=== PATIENT | male | born 1955 | race Caucasian/White ===

== ENCOUNTER 2019-04-22 10:58 | Observation (INO) ==
[2019-04-22] MEDS ORDERED: HEPARIN (PORCINE) 1000 UNIT/ML 10 ML (CATH LAB USE ONLY) ONE (12:21)
[2019-04-22] MEDS ORDERED: NiCARDipine HCL INJ 2.5 MG/ML 10 ML AMP ONE (12:21)
[2019-04-22] MEDS ORDERED: MIDAZOLAM HCL 1 MG/ML 2ML VIAL ONE (12:21)
[2019-04-22] MEDS ORDERED: fentaNYL citrate 100 MCG/2 ML VIAL ONE (12:21)
[2019-04-22] MEDS ORDERED: NITROGLYCERIN/D5W 100MCG/ML 20ML SYR ONE (12:22)
--- NOTE | 2019-04-22 14:17 | History & Physical Bridge Note ---
Date of Service April 22, 2019 History & Physical Bridge Note I have examined the patient, reviewed the History & Physical and in the interval since the performance of the History & Physical I have noted the following changes of clinical significance: no changes noted
--- NOTE | 2019-04-22 14:17 | Pre Anesthesia Assessment ---
Date of Service April 22, 2019 Pre Sedation Assessment Vital Signs Temp Pulse Resp BP Pulse Ox 04/22/19 14:10 71 20 110/73 97 04/22/19 11:28 97.9 F 69 16 123/78 98 Cardiovascular RRR, no murmur, no edema Respiratory normal respiratory effort, lungs clear to auscultation Pre-Sedation Airway Assessment Smoking Status: Former smoker Hx Sleep Apnea: No Hx Difficult Intubation: No Short, Thick Neck: No Thyromental Distance: > or= 3.5 Finger Breadths Oral Cavity: + WNL Mallampati Class: III ASA: ASA3 NPO Status Date of Last Intake of Fluids: 04/21/19 Time of Last Intake of Fluids: 21:00 Date of Last Intake of Solid Food: 04/21/19 Time of Last Intake of Solid Foods: 21:00 Procedure Planning Contraindications for Sedation: none Current Medications Reviewed: Yes Notes The planned sedation has been discussed with the patient. Informed Consent was obtained. I have identified the patient, determined the appropriateness of sedation and have assessed the patient immediately prior to the procedure. All medicine(s) and interventions are by my order.
--- NOTE | 2019-04-22 14:18 | Post Anesthesia Assessment ---
Date of Service April 22, 2019 Post Sedation Assessment Vital Signs Temp Pulse Resp BP Pulse Ox 04/22/19 14:10 71 20 110/73 97 04/22/19 11:28 97.9 F 69 16 123/78 98 Recovery Score Activity: Moves 4 extremities Respiration: Deep Breath/Cough Circulation: +/-20% PreAnes Value Consciousness: Fully Awake Oxygen Saturation: > 92% On Room Air Post Anesthesia Score: 10 Discharge Sedation Level of Care: Fast Track Phase II Post Sedation Plan On clinical assessment, the patient appears to have tolerated the sedation without complications. Patient is recovering as anticipated. Patient will continue to be monitored by nursing and may be discharged when sedation discharge criteria are met per below protocol. Upon Completions of procedure up to 15 minutes continue every 5 minute vital signs and the P.A.R. score; then discharge to a Phase I or Fast Track to Phase II per the following guidelines: * Discharge Patient to appropriate Phase II area if PAR is 8 or greater or return to pre- procedure baseline. The post - procedure orders will be as directed. * If PAR score is less than 8 or not return to pre-procedure baseline then patient will follow Phase I monitoring till PAR is reached for Phase II. The Phase I may be done in procedure room or may call to secure a Phase I area. * If naloxone or flumazenil are used for reversal, hold in Phase I for continued monitoring from when last reversal dose was given for a minimum of 60 minutes or longer pending the nurse and/or physician discretion of patient condition before discharge to Phase II. Please call the Sedation Physician to re-evaluate and complete post-note for discharge to Phase II area. Do NOT discharge from procedure sedation or Phase 1 until post- sedation evaluation note is complete by procedure /sedation MD Sedation Discharge Instructions to be given to the patient at discharge to home.
[2019-04-22] MEDS ORDERED: ACETAMINOPHEN 325 MG TAB PO PRN (14:33)
[2019-04-22] MEDS ORDERED: NITROGLYCERIN SL 0.4 MG/TAB TAB SL PRN (14:33)
[2019-04-22] MEDS ORDERED: ONDANSETRON INJ 2 MG/ML 2 ML VIAL IV PRN (14:33)
--- NOTE | 2019-04-22 14:33 | Cardiac Catheterization ---
[facility] Data: Porcel[employer]ish Sprayer Cardiac Status Clinical evaluation leading to the procedure CAD Presenation: Unstable angina Anginal Classification: CCS III Heart Failure: No Cardiogenic Shock within 24 Hours: No Cardiac Arrest within 24 Hours: No Imaging Studies Past 6 Months: No Stress Studies Past 6 Months: No Diagnostic Physicians Name: Baldo Jones MD Status: Elective Closure Device Percutaneous Entry Location: Radial Closure Device: Radial Band Recommendations: PCI without planned CABG PCI Indication: Unstable Angina Lesion Segment Name: SVG to left PLB Culprit Artery: Yes Stenosis Prior to Rx (%): 95 Chronic Total Occlusion: No IVUS: No FFR: No Pre-Procedure ROSANA Flow: 2 Previously Treated Lesion: No Lesion Complexity: High/C Lesion Length (mm): 12 Thrombus Present: Yes Bifurcation Lesion: No Guidewire Across Lesion: Stenosis Post-Procedure (%): 0 Post-Procedure ROSANA Flow: 3 Devices(s) Deployed: Yes Yes Intraprocedure Events Significant Disection: No Perforation: No Cardiac Cath Procedure Full Procedure Date April 22, 2019 Pre-Procedure Diagnosis Pre-Procedure Diagnosis: Angina AUC Score AUC Score: 7 Post-Procedure Diagnosis Post-Procedure Diagnosis: Severe CAD, Successful PCI and Normal Intracardiac Pressures Procedure(s) Performed Procedure(s) Performed: Coronary Angiography, Drug Eluting Stent and Bypass Graft Angiography Division Head Baldo Jones MD Desolderer(s) Angelica Estimated Blood Loss Estimated Blood Loss: 10 Medication(s) Medication(s): Fentanyl, Heparin, Lidocaine 1%, Nicardipine, Nitroglycerin and Versed Medication(s): Ticagrelor Summary of Findings Indication: Unstable angina Access: 6 [place] left radial artery Catheters: JL4, JR4, pigtail, MPA guide LM -luminal irregularities LAD -moderate caliber vessel with 20% mid segment disease, luminal irregularities as wraps around the apex Circumflex -moderate caliber vessel with luminal irregularities. Gives off 3 OM's. OM1 with moderate to severe diffuse disease. Moderate caliber OM 2 with 50 % mid segment disease. Small OM 3 with 80-90% proximal stenosis. Left PLB occluded at ostium RCA -100% chronic proximal occlusion as gives off tortuous acute marginal SVG to left PLB 95+% stenosis in distal segment with TIMI2 flow. Distal luminal irregularities in PLB after anastomosis. SVG to right PDAwidely patent with 40% stenosis prior to widely patent distal stent. -- PCI -- Antithrombotic therapy: Heparin, ticagrelor Procedure: SVG to PLB cannulated with MPA guide Hydrometer Calibrator 50 wire passed across lesion into distal vessel Distal SVG to PLB lesion predilated with 2.5 compliant balloon Dilated lesion stented with 3.0 x 18 mm [place] drug-eluting stent IC vasodilators administered for spasm Post procedure ROSANA 3 flow, stent well expanded with minimal residual stenosis and no apparent cardiac complications. Arterial Closure: TR band Summary: 1. SVG to left PLB with 95+% distal graft stenosis and ROSANA II flow 2. Widely patent SVG to right PDA with patent anastomotic stent 3. Chronic [place] multi-vessel coronary artery disease -Chronically occluded proximal RCA Chronically occluded left PLB OM1 with moderate to severe diffuse disease, OM 2 with 50% stenosis 4. Normal intracardiac filling pressure 5. Successful PCI of distal SVG to left PLB vein graft with single drug-eluting stent (3.0 x 18 mm Truman). Recommendations: To PCU for continued monitoring Continue dual-antiplatelet therapy for at least one year Continue statin, and ASCVD risk factor modification Consult cardiac Rehab Hemodynamics Rest Ao:: / Final Ao: //80 LV: 102/10 Recommendations Recommendations: PCI without planned CABG Specimens Specimens: None Radiation Exposure (mGy) 2567 Contrast (mls) 175 Fluids (cc crystalloids) Fluids (cc crystalloids): 135 Drains Drains: None Anesthesia Moderate Procedural Complication(s) None Disposition PCU I attest to the content of the Intraoperative Record and any orders documented therein. Any exceptions are noted below.
[2019-04-22] MEDS ORDERED: SODIUM CHLORIDE 0.9% 1000ML 1,000 ML IV SCH (14:45)
[2019-04-22] MEDS: METOPROLOL TARTRATE 25 MG TAB PO SCH (21:09)
[2019-04-22] MEDS: TICAGRELOR 90 MG TAB PO SCH (21:09)
[2019-04-23 06:14] LABS: Basophils # (auto) 0.02 K/uL (0-0.2); Basophils % (auto) 0.2 %; Eosinophils # (auto) 0.05 K/uL (0-0.5); Eosinophils % (auto) 0.6 %; Hematocrit (blood only) 49.5 % (42-52); Hemoglobin 17.5 g/dL (14.0-18.0); Immature Granulocytes # (auto) 0.01 K/uL (0.00-0.02); Immature Granulocytes % (auto) 0.1 %; Lymphocytes # (auto) 1.48 K/uL (1.2-3.4); Lymphocytes % (auto) 17.2 %; Mean Corpuscular Hemoglobin 31.1 pg (25-34); Mean Corpuscular Hgb Conc 35.4 g/dL (32-36); Mean Corpuscular Volume 87.9 fL (80-100); Mean Platelet Volume 9.7 fL (7.4-10.4); Monocytes % (auto) 10.5 %; Neutrophils # (auto) 6.13 K/uL (1.4-6.5); Neutrophils % (auto) 71.4 %; Platelet Count 216 K/uL (130-400); RDW Coefficient of Variation 12.8 % (11.5-14.5); RDW Standard Deviation 40.8 fL (36.4-46.3); Red Blood Count 5.63 M/uL (4.7-6.1); White Blood Count 8.59 K/uL (4.8-10.8)
[2019-04-23 06:46] LABS: BUN Creatinine Ratio 15.2 (10-20); Calcium 9.5 mg/dl (8.5-10.1); Creatinine Clr Calc Pharmacy 59.4 ml/min; Est GFR (African American) 74.9; Est GFR (Non-African American) 64.6; Potassium 3.1 mmol/L (3.5-5.1)
[2019-04-23] MEDS: TICAGRELOR 90 MG TAB PO SCH (08:07)
[2019-04-23] MEDS: METOPROLOL TARTRATE 25 MG TAB PO SCH (08:08)
[2019-04-23] MEDS ORDERED: POTASSIUM CHLORIDE 20 MEQ TABCR PO STA (08:09)
--- NOTE | 2019-04-23 08:57 | Discharge Summary ---
Date of Service April 23, 2019 Admission HPI Per Admitting Provider Mr. Huerta is a very pleasant 63-year-old man with a history of coronary artery disease post two-vessel CABG and mitral valve repair in 2011, inferior STEMI post SABINE to SVG to PDA anastomosis 05/2018 who was recently seen in the office with accelerating angina. Presented for repeat cardiac catheterization. Specialty Data Cardiology Cardiac catheterization/PCI 04/22/2019: 1. SVG to left PLB with 95+% distal graft stenosis and ROSANA II flow 2. Widely patent SVG to right PDA with patent anastomotic stent 3. Chronic [place] multi-vessel coronary artery disease -Chronically occluded proximal RCA Chronically occluded left PLB OM1 with moderate to severe diffuse disease, OM 2 with 50% stenosis 4. Normal intracardiac filling pressure 5. Successful PCI of distal SVG to left PLB vein graft with single drug-eluting stent (3.0 x 18 mm [place]). Discharge Data Consultations 04/22/19 14:36 Consult Cardiac Rehabilitation Routine Procedures Performed Operation Date: 04/22/19 12:00 Actual Procedures p Cineradiography w/Routine Exam - Reese Jones MD p Cath, Left w/Cors Vent Grafts - Reese Jones MD s Drug Eluding Stent, SVG/GELA, A - Reese Jones MD Hospital Course (1) CAD (coronary artery disease): Patient underwent cardiac catheterization via left radial artery. He was found to have a patent vein graft to PDA. Prior stent across the anastomosis to PDA was widely patent. Chronic [place] multivessel disease was largely unchanged. He was found to have a new severe stenosis involving the distal aspect of his vein graft to his left PLB. This was treated with PCI with single drug-eluting stent. Procedure was uncomplicated. Patient was admitted to telemetry for observation. No events overnight. No apparent access site complications. Labs stable except for hypokalemia which was supplemented. Patient discharged home on continue DAPT with aspirin, ticagrelor. Chlorthalidone was stopped in the setting of relative low blood pressures, hypokalemia. Follow-up with cardiology in 2 to 3 weeks. Discharge Instructions Discharge meds include: Aspirin 81 mg daily Brilinta 90 mg twice daily Ezetimibe 10 mg daily Lisinopril 10 mg daily Metoprolol 25 mg twice daily Pravastatin 20 mg daily
[2019-04-23] MEDS ORDERED: EZETIMIBE 10 MG TABLET PO SCH (09:00)
[2019-04-23] MEDS ORDERED: CHLORTHALIDONE 25 MG TAB PO SCH (09:00)
[2019-04-23] MEDS ORDERED: LISINOPRIL 10 MG TAB PO SCH (09:00)
[2019-04-23] MEDS ORDERED: PRAVASTATIN SOD 20 MG TAB PO SCH (09:00)
[2019-04-23] MEDS ORDERED: ASPIRIN 81 MG ECTAB PO SCH (09:00)
[2019-04-23] MEDS ORDERED: ENOXAPARIN INJ 40 MG/0.4 ML SYR SQ SCH (16:00)
== END 2019-04-23 10:08 | disposition home or self-care (01) ==
LOC: CC 10:58 → 2S 10:58
DX: E78.5 Hyperlipidemia, unspecified; Z79.899 Other long term (current) drug therapy; I10 Essential (primary) hypertension; I25.110 Atherosclerotic heart disease of native coronary artery with unstable angina pectoris; Z95.1 Presence of aortocoronary bypass graft; Z95.2 Presence of prosthetic heart valve

== ENCOUNTER 2021-01-30 08:31 | Observation (INO) ==
[2021-01-30] MEDS ORDERED: MoRPHine SULFATE 4 MG/ML 1 ML CARP\\VIAL IV STA (09:28)
[2021-01-30] MEDS ORDERED: ONDANSETRON INJ 2 MG/ML 2 ML VIAL IV STA ×2 (09:28→11:41)
[2021-01-30] MEDS ORDERED: SODIUM CHLORIDE 0.9% 1000ML 1,000 ML IV SCH (09:28)
--- NOTE | 2021-01-30 09:30 | Emergency Department Note ---
Impression & Plan Calculus of left ureter, C. difficile colitis, Leukocytosis, ANKUSH (acute kidney injury) ED Provider Note CHIEF COMPLAINT: Acute left flank pain x4 hours HISTORY OF PRESENT ILLNESS: Patient is a 65-year-old male who presents emergency department for evaluation of acute left flank pain that started around 0400 this morning, roughly 4 hours ago. He has a known history of kidney stones and been has been having bilateral intermittent back and flank pain over the last several weeks, this was manageable. He is following with GI as he is currently being treated with oral vancomycin for C. difficile colitis. He had a KUB x-ray performed on 01/24 which noted bilateral nephrolithiasis. He has a urology appointment scheduled for tomorrow. Patient states that since 0400 this morning he has had a colicky left flank pain that radiates to his left lower quadrant and towards his penis and scrotum. It was an 8/10 at its worse with associated nausea, without vomiting, he currently rates his pain a 6/10. He did not have any medication to take. He has noticed hematuria in the last several weeks. This morning he feels like he is having hard time urinating. No fever or chills. He is still having some diarrhea from the C. difficile, but this is improving. REVIEW OF SYSTEMS: Review of systems as per HPI. All other systems reviewed were negative. 10 systems reviewed. PMH: Electronic medical records are reviewed and summarized as above/below. See Problem List. SOCIAL HISTORY: Patient lives at home with his spouse. Non-smoker. PHYSICAL EXAM: Vital Signs: Reviewed Nurse's notes. CONSTITUTIONAL: Patient is an uncomfortable otherwise well-appearing 65-year-old male who is awake and alert and in no acute distress. EYES: Pupils equal, round, reactive to light and accommodation. EOMs intact without nystagmus. Sclera are anicteric. ENT: Tympanic membranes intact, with normal landmarks. External canals are clear. Oral and nasopharynx are clear. Mucous membranes are moist, no lesions, tongue and gums appear normal. CARDIOVASCULAR: Regular rate and rhythm. Peripheral pulses easily palpable. RESPIRATORY: Breath sounds equal and clear to auscultation. ABDOMEN: Bowel sounds are present. Abdomen is soft, nondistended, nontender to percussion and palpation throughout. No guarding or rebound. INTEGUMENTARY: No lesions or rash, normal skin turgor. LYMPH: No lymphadenopathy. EMERGENCY DEPARTMENT COURSE: The patient was seen and assessed as above. Old records were reviewed. He presents the emergency department for evaluation of left flank pain, with a known history of kidney stones. IV lock was initiated and laboratory studies were collected. CBC with differential, CMP and urinalysis were ordered. He was hydrated with a liter bolus of normal saline solution, then 250 cc/h. He was medicated initially with morphine 4 mg and Zofran [address] scan of the abdomen and pelvis without contrast was ordered. Laboratory studies note an elevated white count at 18,200, left shift and bandemia noted. Electrolytes are within normal limits, BUN normal at 12, creatinine slightly elevated from baseline at 1.43, up from 1.2. Transaminases are normal. A lipase was added after the CT scan, and the lipase was within normal limits. Urine microscopy notes 1+ ketones and 3+ blood, uric acid crystals are present, otherwise no other significant indicators for infection. CT scan of the abdomen and pelvis notes several calculi or calculi fragments in the mid left ureter measuring 6 x 2 mm. There is also a small left distal calculi measuring about 3 mm. Mild to moderate left hydronephrosis noted with perinephric stranding. There is a 4 mm right UPJ calculus with no right hydronephrosis. Peripancreatic infiltration favors acute pancreatitis although lipase is not indicative of this. Mild wall thickening and minimal pericolonic infiltration of the transverse and descending colon representing a nonspecific colitis, likely related to his C. difficile colitis. There is also asymmetric thickening of the right lateral rectal wall. GI consultation was recommended. Nursing staff contacted me that the patient was noting some increased pain. He was given additional morphine 6 mg IV. He was still nauseous and was given Zofran 4 mg IV. Given the leukocytosis, elevated creatinine, and the stone burden on the left, I did place a consultation with urology and spoke with EMRE Heller. Discussed with her that I felt the patient required inpatient care, and she was in agreement, they will consult. Consultation was placed with Dr. Salcido with the [facility] for further care and inpatient management. Ultimately was decided that urology would take the patient to the OR for intervention. Past Med/Surg History Medical History Adenomatous polyps Hearing deficit History of kidney stones History of migraine Hyperlipidemia LDL goal <70 Hypertension Mitral valve prolapse Myocardial Infarction 2018 - [place] - had heart cath with one stent @ [facility] follows with On anticoagulant therapy brillinta bid for CABG/stents ST elevation MS (STEMI) Surgical History H/O right heart catheterization 2011 -- heart cath - [facility] --> CABG x 2 04/2019--heart cath @ [facility] with 1 stent placed by History of cholecystectomy History of colonoscopy History of cystoscopy W/ STONE EXTRACTION History of heart artery stent 2017 [place] - heart cath with stent 04/2019 - complains of angina and sob and decision to continue with heart cath and had drug eluting stent @ [facility]. pt has been instructed that he has to take dual antiplatelet therapy with no interruptions. - pt was scheduled for colonoscopy for 08-10-2019. [address] Dr. Patel aware of not stopping thinners and Pt okay to proceed. Pt was cancelled on 08-10-[address] Rodriguez and Dr. Patel discussed case. History of lithotripsy History of mitral valve repair 2012 at same times as CABG Hx of CABG 2012 - 2 VESSELS Family History Mother Post-operative nausea and vomiting Slow to wake up after anesthesia Sister Post-operative nausea and vomiting Slow to wake up after anesthesia Other Cancer Denies family history of Crohn's disease Colorectal cancer Ulcerative colitis Colonic polyp Social History Smoking Status: Former smoker Second Hand Exposure: Yes (father smoked/ smoked); Hx Alcohol Use: No Hx Substance Use: No Preferred Language: Nepali Communication Ability: Effective Fisher Purse Seine Required: No Beliefs That Will Affect Care: None marital status: Current Living Situation: Family Current Living Situation Comment: Lives with , son and daugther current occupation: Retired Feels Safe at Home: Yes Assistive Devices: Glasses Allergies Allergies Allergy/AdvReac Type Severity Reaction Status Date / Time No Known Drug Allergies Allergy Verified 01/24/21 11:32 Home Meds Home Medications Medication Instructions Recorded Confirmed niacin 500 mg tablet 500 mg PO QAM 02/15/20 01/30/21 omega-3 fatty acids 1,000 mg PO BID 02/15/20 01/30/21 saw palmetto 500 mg capsule 500 mg PO BID 02/15/20 01/30/21 Previous Rx's Medication Instructions Recorded aspirin 81 mg tablet,delayed 81 mg PO QAM 30 Days #30 tab 04/23/19 release (Ecotrin Low Strength) pravastatin 20 mg tablet 20 mg PO PM #90 tab 05/15/20 lisinopril 10 mg tablet 10 mg PO QAM #90 tab 08/16/20 ezetimibe 10 mg tablet 10 mg PO PM #90 tab 09/13/20 ticagrelor 90 mg tablet (Brilinta) 90 mg PO BID #180 tab 10/09/20 vancomycin 125 mg capsule 125 mg PO QID 10 Days #40 cap 01/29/21 Results & Data (ED) Vital Signs Vital Signs - 24 hr 01/30/21 08:37 01/30/21 10:23 01/30/21 12:15 Temperature 36.6 C Temperature Source Temporal Artery Scan Pulse Rate 90 Pulse Rate [Left Finger] 65 76 Pulse Rhythm [Left Finger] Regular Regular Pulse Strength [Left Finger] Normal Normal Respiratory Rate 18 20 20 Respiratory Effort / Characteristics Non-Labored Spontaneous Non-Labored Spontaneous Respiratory Depth Normal Normal Respiratory Pattern Regular Blood Pressure 138/86 Blood Pressure [Left Arm] 140/89 169/102 H Blood Pressure Mean 103 Blood Pressure Mean [Left Arm] 106 124 Blood Pressure Position [Left Arm] Sitting Sitting Pulse Oximetry 97 98 94 Oxygen Delivery Method Room Air Room Air Sepsis Recent Fever Within 48 Hours No Sepsis New/Unexplained Change in Mental Status No Sepsis Action Taken by Nursing No Action Required Home Medications Current Medication List: was personally reviewed by me Laboratory Data Attestation: I reviewed the patient's lab results. Result diagrams: 01/30/21 09:49 01/30/21 09:49 Lab Results 01/30/21 01/30/21 01/30/21 Range/Units 08:52 09:49 09:49 WBC 18.28 H (4.8-10.8) K/uL RBC 5.27 (4.7-6.1) M/uL Hgb 15.9 (14.0-18.0) g/dL Hct 47.2 (42-52) % MCV 89.6 (80-100) fL MCH 30.2 (25-34) pg MCHC 33.7 (32-36) g/dL RDW Std Deviation 43.7 (36.4-46.3) fL RDW Coeff of Erin 13.4 (11.5-14.5) % Plt Count 300 (130-400) K/uL MPV 8.4 (7.4-10.4) fL Immature Gran % (Auto) 0.8 % Neut % (Auto) 76.4 % Lymph % (Auto) 8.4 % [place] % (Auto) 9.2 % Eos % (Auto) 4.8 % Baso % (Auto) 0.4 % Neut # (Auto) 13.94 H (1.4-6.5) K/uL Lymph # (Auto) 1.54 (1.2-3.4) K/uL [place] # (Auto) 1.69 H (0.11-0.59) K/uL Eos # (Auto) 0.88 H (0-0.5) K/uL Baso # (Auto) 0.08 (0-0.2) K/uL Immature Gran # (Auto) 0.15 H (0.00-0.02) K/uL Sodium 136 (136-145) mmol/L Potassium 3.8 (3.5-5.1) mmol/L Chloride 103 (98-107) mmol/L Carbon Dioxide 28 (21-32) mmol/L Anion Gap 5.0 (3-11) BUN 12 (7-18) mg/dl Creatinine 1.43 H (0.6-1.4) mg/dl Est Cr Clr Drug Dosing 48.1 ml/min Est GFR ( Amer) 59.1 ml/min Est GFR (Non-Af Amer) 51.0 ml/min BUN/Creatinine Ratio 8.0 L (10-20) Glucose 94 (70-99) mg/dl Calcium 9.5 (8.5-10.1) mg/dl Total Bilirubin 0.4 (0.2-1) mg/dl AST 15 (15-37) U/L ALT 22 (12-78) U/L Alkaline Phosphatase 76 (45-117) U/L Total Protein 8.1 (6.4-8.2) gm/dl Albumin 3.2 L (3.4-5.0) gm/dl Globulin 4.9 H (2.5-4.0) gm/dl Albumin/Globulin Ratio 0.7 L (0.9-2) Lipase 305 (73-393) U/L Urine Color Red Urine Appearance Turbid A (Clear) Urine pH 5.5 (4.5-7.5) Ur Specific [place] 1.025 (1.000-1.030) Urine Protein 3+ H (Negative) Urine Glucose (UA) Negative (Negative) Urine Ketones 1+ H (Negative) Urine Blood 3+ H (Negative) Urine Nitrite Negative (Negative) Urine Bilirubin 1+ H (Negative) Urine Urobilinogen Negative (Negative) Ur Leukocyte Esterase Negative (Negative) Urine RBC >30 H (0-4) /hpf Urine WBC 5-10 H (0-5) /hpf Ur Epithelial Cells 5-10 H (0-5) /lpf Uric Acid Crystals Present A (None Prsent) Urine Bacteria Negative (Negative) Urine Mucus Present A (None Prsent) COVID-19 Eval Order SARS-CoV-2 (PCR) (Negative) 01/30/21 01/30/21 Range/Units 11:55 11:55 WBC (4.8-10.8) K/uL RBC (4.7-6.1) M/uL Hgb (14.0-18.0) g/dL Hct (42-52) % MCV (80-100) fL MCH (25-34) pg MCHC (32-36) g/dL RDW Std Deviation (36.4-46.3) fL RDW Coeff of Erin (11.5-14.5) % Plt Count (130-400) K/uL MPV (7.4-10.4) fL Immature Gran % (Auto) % Neut % (Auto) % Lymph % (Auto) % [place] % (Auto) % Eos % (Auto) % Baso % (Auto) % Neut # (Auto) (1.4-6.5) K/uL Lymph # (Auto) (1.2-3.4) K/uL [place] # (Auto) (0.11-0.59) K/uL Eos # (Auto) (0-0.5) K/uL Baso # (Auto) (0-0.2) K/uL Immature Gran # (Auto) (0.00-0.02) K/uL Sodium (136-145) mmol/L Potassium (3.5-5.1) mmol/L Chloride (98-107) mmol/L Carbon Dioxide (21-32) mmol/L Anion Gap (3-11) BUN (7-18) mg/dl Creatinine (0.6-1.4) mg/dl Est Cr Clr Drug Dosing ml/min Est GFR ( Amer) ml/min Est GFR (Non-Af Amer) ml/min BUN/Creatinine Ratio (10-20) Glucose (70-99) mg/dl Calcium (8.5-10.1) mg/dl Total Bilirubin (0.2-1) mg/dl AST (15-37) U/L ALT (12-78) U/L Alkaline Phosphatase (45-117) U/L Total Protein (6.4-8.2) gm/dl Albumin (3.4-5.0) gm/dl Globulin (2.5-4.0) gm/dl Albumin/Globulin Ratio (0.9-2) Lipase (73-393) U/L Urine Color Urine Appearance (Clear) Urine pH (4.5-7.5) Ur Specific [place] (1.000-1.030) Urine Protein (Negative) Urine Glucose (UA) (Negative) Urine Ketones (Negative) Urine Blood (Negative) Urine Nitrite (Negative) Urine Bilirubin (Negative) Urine Urobilinogen (Negative) Ur Leukocyte Esterase (Negative) Urine RBC (0-4) /hpf Urine WBC (0-5) /hpf Ur Epithelial Cells (0-5) /lpf Uric Acid Crystals (None Prsent) Urine Bacteria (Negative) Urine Mucus (None Prsent) COVID-19 Eval Order Covid19 at [facility] SARS-CoV-2 (PCR) NEGATIVE (Negative) Administered Medications Heparin Sodium (Porcine) (Heparin Sod 5,000 Unit/0.5 Ml Vial) 5,000 units SQ Q8 CHELY Stop: 03/01/21 14:27 Last Admin: 01/30/21 15:10 Dose: Not Given Documented by: [id number] Cefazolin Sodium (Ancef 2000mg) 2,000 mg in 15 mls @ 3.75 mls/min IV PREOP CHELY Stop: 01/30/21 23:59 Last Admin: 01/30/21 15:41 Dose: 3.75 mls/min Documented by: [id number] Discontinued Medications Hydromorphone HCl (Hydromorphone Inj 0.5 Mg/0.5 Ml Syr) Confirm Administered Dose 0.5 mg .ROUTE .STK-MED ONE Stop: 01/30/21 13:49 Last Admin: 01/30/21 13:50 Dose: 0.5 mg Documented by: [id number] Sodium Chloride (Nss 1000ml) 1,000 mls @ 250 mls/hr IV .Q4H CHELY Stop: 03/01/21 09:29 Last Admin: 01/30/21 15:13 Dose: Not Given Documented by: [id number] Infusion: 01/30/21 15:07 Dose: 0 mls/hr Documented by: [id number] Admin: 01/30/21 11:03 Dose: 250 mls/hr Documented by: [id number] Sodium Chloride (Nss 1000ml) 1,000 mls @ 999 mls/hr IV .Q1H1M CHELY Stop: 01/30/21 10:28 Last Infusion: 01/30/21 11:03 Dose: 0 mls/hr Documented by: [id number] Admin: 01/30/21 09:54 Dose: 999 mls/hr Documented by: [id number] Morphine Sulfate (Morphine Sulfate 4 Mg/Ml 1 Ml Carp\Vial) 4 mg IV NOW STA Stop: 01/30/21 09:29 Last Admin: 01/30/21 09:54 Dose: 4 mg Documented by: [id number] Morphine Sulfate (Morphine Sulfate 10 Mg/Ml Carp/Vial) 6 mg IV NOW STA Stop: 01/30/21 11:18 Last Admin: 01/30/21 11:23 Dose: 6 mg Documented by: [id number] Morphine Sulfate (Morphine Sulfate 2 Mg/Ml Carp) Confirm Administered Dose 2 mg .ROUTE .STK-MED ONE Stop: 01/30/21 11:22 Last Admin: 01/30/21 11:23 Dose: Not Given Documented by: [id number] Ondansetron HCl (Ondansetron Inj 2 Mg/Ml 2 Ml Vial) 4 mg IV NOW STA Stop: 01/30/21 09:29 Last Admin: 01/30/21 09:54 Dose: 4 mg Documented by: [id number] Ondansetron HCl (Ondansetron Inj 2 Mg/Ml 2 Ml Vial) 4 mg IV NOW STA Stop: 01/30/21 11:42 Last Admin: 01/30/21 11:54 Dose: 4 mg Documented by: [id number] Imaging Data Attestation: I personally reviewed and interpreted this imaging study as follows: Radiologist's Impression: Abdomen/Pelvis CT 01/30/21 09:28 CT OF THE ABDOMEN AND PELVIS WITHOUT CONTRAST CLINICAL HISTORY: ACUTE L FLANK PAIN THIS MORNING COMPARISON STUDY: KUB January 24, 2021. TECHNIQUE: Axial images of the abdomen and pelvis were obtained without IV contrast. Images were reviewed in the axial, sagittal, and coronal planes. Automated exposure control was utilized for the study. A dose lowering stacey hnique was utilized adhering to the principles of ALARA. FINDINGS: Lung bases are unremarkable. There is a prosthetic mitral valve. Median sternotomy wires are noted. No pneumatosis, free air or portal venous gas is present. There is no biliary ductal dilatation status post cholecystectomy. There is moderate peripancreatic infiltration. No peripancreatic fluid collection is present. Unenhanced images of the spleen and adrenal glands are unremarkable. There are bilateral renal parapelvic cysts. There is mild to moderate left hydronephrosis. Several calculi or calculi fragments within the mid left ureter measure up to 6 mm x 2 mm. A few distal left ureteral calculi measure up to 3 mm. There is a 4 mm right ureteropelvic junction calculus. There is no right hydronephrosis. Bilateral renal calculi measure up to 7 mm. There is no evidence for a bowel obstruction. There is mild wall thickening with apparent minimal pericolonic infiltration of the transverse colon as well as the descending colon. Note is made of apparent asymmetric thickening of the right lateral wall of the rectum shown best on axial image 429 of 481. Prominent rectal lymph nodes that measure up to 8 mm. No acute fracture or suspicious lesion is identified within the visualized skeletal structures. IMPRESSION: 1. Several calculi or calculi fragments within the mid left ureter that measure up to 6 mm x 2 mm. Small distal left ureteral calculi measure up to 3 mm. Mild to moderate left hydronephrosis with perinephric stranding. 2. 4 mm right ureteropelvic junction calculus. No right hydronephrosis. 3. Bilateral nephrolithiasis. 4. Mild peripancreatic infiltration which favors acute pancreatitis. 5. Mild wall thickening with minimal pericolonic infiltration of the transverse colon and the descending colon. This may reflect a nonspecific colitis. 6. Apparent asymmetric thickening of the right lateral wall of the rectum. This is difficult to assess by CT and may be due to underdistention. However, a rectal mass cannot be completely excluded. Prominent perirectal lymph nodes. Nonemergent GI consultation is recommended. ACT 112: Positive. There are findings on this exam that require communication between the performing entity and the patient following Patient Test Result Information Act ([place] Act 112) guidelines. Electronically signed by: Joe Bolton M.D. 01/30/2021 10:50 AM Discharge Plan Visit Data Chief Complaint: Flank Pain Stated Complaint: KIDNEY STONES, LT SIDE FLANK PAIN ED Provider: Alonzo Kwan ED Midlevel Provider: Mariajose Pathak Discharge Problem: Calculus of left ureter, C. difficile colitis, Leukocytosis, ANKUSH (acute kidney injury) Patient Disposition: Admitted As Inpatient Discharge Instructions Interventions: ED Discharge Assessment Last Done: 01/30/21 14:11
[2021-01-30 10:02] LABS: Appearance Urine Turbid (Clear); Bilirubin Urine 1+ (Negative); Blood Urine 3+ (Negative); Color Urine Red; Glucose Urine UA Negative (Negative); Ketones Urine 1+ (Negative); Leukocyte Esterase Urine Negative (Negative); Nitrite Urine Negative (Negative); Protein Urine 3+ (Negative); Specific Gravity Urine 1.025 (1.000-1.030); Urobilinogen Urine Negative (Negative); pH Urine 5.5 (4.5-7.5)
[2021-01-30 10:03] LABS: Basophils # (auto) 0.08 K/uL (0-0.2); Basophils % (auto) 0.4 %; Eosinophils # (auto) 0.88 K/uL (0-0.5); Eosinophils % (auto) 4.8 %; Hematocrit (blood only) 47.2 % (42-52); Hemoglobin 15.9 g/dL (14.0-18.0); Immature Granulocytes # (auto) 0.15 K/uL (0.00-0.02); Immature Granulocytes % (auto) 0.8 %; Lymphocytes # (auto) 1.54 K/uL (1.2-3.4); Lymphocytes % (auto) 8.4 %; Mean Corpuscular Hemoglobin 30.2 pg (25-34); Mean Corpuscular Hgb Conc 33.7 g/dL (32-36); Mean Corpuscular Volume 89.6 fL (80-100); Mean Platelet Volume 8.4 fL (7.4-10.4); Monocytes # (auto) 1.69 K/uL (0.11-0.59); Monocytes % (auto) 9.2 %; Neutrophils # (auto) 13.94 K/uL (1.4-6.5); Neutrophils % (auto) 76.4 %; Platelet Count 300 K/uL (130-400); RDW Coefficient of Variation 13.4 % (11.5-14.5); RDW Standard Deviation 43.7 fL (36.4-46.3); Red Blood Count 5.27 M/uL (4.7-6.1); White Blood Count 18.28 K/uL (4.8-10.8)
[2021-01-30 10:20] LABS: Albumin Level 3.2 gm/dl (3.4-5.0); Calcium 9.5 mg/dl (8.5-10.1); Creatinine Clr Calc Pharmacy 48.1 ml/min; Est GFR (African American) 59.1 ml/min; Potassium 3.8 mmol/L (3.5-5.1)
[2021-01-30 10:23] LABS: Albumin Globulin Ratio 0.7 (0.9-2); Bilirubin,Total 0.4 mg/dl (0.2-1); Globulin 4.9 gm/dl (2.5-4.0); Total Protein 8.1 gm/dl (6.4-8.2)
[2021-01-30 10:31] LABS: Bacteria Urine Negative (Negative); Mucus Urine Present (None Prsent); RBC Urine >30 /hpf (0-4); Uric Acid Crystals Urine Present (None Prsent)
--- NOTE | 2021-01-30 10:51 | CT Scan Report ---
CT OF THE ABDOMEN AND PELVIS WITHOUT CONTRAST CLINICAL HISTORY: ACUTE L FLANK PAIN THIS MORNING COMPARISON STUDY: KUB January 24, 2021. TECHNIQUE: Axial images of the abdomen and pelvis were obtained without IV contrast. Images were revi ewed in the axial, sagittal, and coronal planes. Automated exposure control was utilized for the aden dy. A dose lowering technique was utilized adhering to the principles of ALARA. FINDINGS: Lung bases are unremarkable. There is a prosthetic mitral valve. Median sternotomy wires ar e noted. No pneumatosis, free air or portal venous gas is present. There is no biliary ductal dilatat ion status post cholecystectomy. There is moderate peripancreatic infiltration. No peripancreatic flu id collection is present. Unenhanced images of the spleen and adrenal glands are unremarkable. There are bilateral renal parapelvic cysts. There is mild to moderate left hydronephrosis. Several calculi or calculi fragments within the mid left ureter measure up to 6 mm x 2 mm. A few distal left ureteral calculi measure up to 3 mm. There is a 4 mm right ureteropelvic junction calculus. There is no right hydronephrosis. Bilateral renal calculi measure up to 7 mm. There is no evidence for a bowel obstruc tion. There is mild wall thickening with apparent minimal pericolonic infiltration of the transverse colon as well as the descending colon. Note is made of apparent asymmetric thickening of the right la teral wall of the rectum shown best on axial image 429 of 481. Prominent rectal lymph nodes that [place] ure up to 8 mm. No acute fracture or suspicious lesion is identified within the visualized skeletal s tructures. IMPRESSION: 1. Several calculi or calculi fragments within the mid left ureter that measure up to 6 mm x 2 mm. Sm all distal left ureteral calculi measure up to 3 mm. Mild to moderate left hydronephrosis with perine phric stranding. 2. 4 mm right ureteropelvic junction calculus. No right hydronephrosis. 3. Bilateral nephrolithiasis. 4. Mild peripancreatic infiltration which favors acute pancreatitis. 5. Mild wall thickening with minimal pericolonic infiltration of the transverse colon and the descend ing colon. This may reflect a nonspecific colitis. 6. Apparent asymmetric thickening of the right lateral wall of the rectum. This is difficult to asses s by CT and may be due to underdistention. However, a rectal mass cannot be completely excluded. Prom inent perirectal lymph nodes. Nonemergent GI consultation is recommended. ACT 112: Positive. There are findings on this exam that require communication between the performing entity and the patient following Patient Test Result Information Act ([place] Act 112) guidelines. Electronically signed by: Joe Bolton M.D. 01/30/2021 10:50 AM
[2021-01-30] MEDS: SODIUM CHLORIDE 0.9% 1000ML 1,000 ML IV SCH ×4 (11:03→23:46)
[2021-01-30] MEDS ORDERED: MoRPHine SULFATE 10 MG/ML CARP/VIAL IV STA (11:17)
[2021-01-30] MEDS ORDERED: MoRPHine SULFATE 2 MG/ML CARP ONE (11:21)
--- NOTE | 2021-01-30 13:16 | History & Physical Report ---
Date of Service January 30, 2021 Assessment & Plan (1) Renal stones: Plan: Admit to a nonmonitored bed Aggressive hydration with normal saline We will start Flomax We will ask urology to evaluate for further recommendations (2) C. difficile colitis: Plan: Continue oral vancomycin for now, patient does note that he is improving and is tolerating this well. Note that patient has leukocytosis, likely secondary to resolving C. difficile and acute renal stones (3) Hyperlipidemia LDL goal <70: Plan: Continue medications as ordered, pravastatin 20 mg, lisinopril 10 mg, Zetia 10mg, Brilinta, aspirin (4) Hypertension: Plan: Patient's blood pressure elevated, likely secondary to discomfort Continue lisinopril as ordered (5) CAD (coronary artery disease): History of Present Illness Chief Complaint: Flank pain Primary Care Provider: Bill Horowitz This is a 65-year-old male with past medical history of CAD, hypertension, hyperlipidemia, and recent diagnosis of C. difficile that presents today complaining of back and left leg pain. Patient is a good historian. Patient tells me he initially had issues with pain when he was given a dose of amoxicillin for some dental work. He had developed some colicky abdominal pain along with diarrhea. He was subsequently diagnosed with C. difficile and had been given Flagyl initially by his PCP. He did not tolerate this medication well and feels that it worsened his abdominal pain. He was subsequently switched over to oral vancomycin which did much better with. 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 However, over the past first patient has had significantly worsening pain, mostly in the left side of his back. He presented to the emergency room as he had previously had a renal stones and felt this may be consistent. In the ER, he did have a CT scan of the abdomen pelvis where he was in fact found to have multiple small stones in the mid left ureter, the largest is 6 mm x 2 mm with accompanying mild to moderate hydronephrosis. Patient is now being mated for further definitive treatment of his renal stones. Allergies Allergy/AdvReac Type Severity Reaction Status Date / Time No Known Drug Allergies Allergy Verified 01/24/21 11:32 Home Medications Medication Instructions Recorded Confirmed Type aspirin 81 mg tablet,delayed 81 mg PO QAM 30 Days #30 tab 04/23/19 01/30/21 Rx release (Ecotrin Low Strength) niacin 500 mg tablet 500 mg PO QAM 02/15/20 01/30/21 History omega-3 fatty acids 1,000 mg PO BID 02/15/20 01/30/21 History saw palmetto 500 mg capsule 500 mg PO BID 02/15/20 01/30/21 History pravastatin 20 mg tablet 20 mg PO PM #90 tab 05/15/20 01/30/21 Rx lisinopril 10 mg tablet 10 mg PO QAM #90 tab 08/16/20 01/30/21 Rx ezetimibe 10 mg tablet 10 mg PO PM #90 tab 09/13/20 01/30/21 Rx ticagrelor 90 mg tablet (Brilinta) 90 mg PO BID #180 tab 10/09/20 01/30/21 Rx vancomycin 125 mg capsule 125 mg PO QID 10 Days #40 cap 01/29/21 01/30/21 Rx Past Med/Surg History Medical History Adenomatous polyps Hearing deficit History of kidney stones History of migraine Mitral valve prolapse Myocardial Infarction 2018 - [place] - had heart cath with one stent @ [facility] follows with On anticoagulant therapy brillinta bid for CABG/stents ST elevation [place] (STEMI) Surgical History H/O right heart catheterization 2011 -- heart cath - [facility] --> CABG x 2 04/2019--heart cath @ [facility] with 1 stent placed by History of cholecystectomy History of colonoscopy History of cystoscopy W/ STONE EXTRACTION History of heart artery stent 2018 [place] - heart cath with stent 04/2019 - complains of angina and sob and decision to continue with heart cath and had drug eluting stent @ [facility]. pt has been instructed that he has to take dual antiplatelet therapy with no interruptions. - pt was scheduled for colonoscopy for 08-10-2019. [address]. Patel aware of not stopping thinners and Pt okay to proceed. Pt was cancelled on 08-10-[address] Rodriguez and Dr. Patel discussed case. 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 Beliefs That Will Affect Care: None marital status: Current Living Situation: Spouse and Family Current Living Situation Comment: Lives with , son and daugther current occupation: Retired Feels Safe at Home: Yes Assistive Devices: Glasses Review of Systems Constitutional: no fever, no chills, no weakness, no weight loss and no weight gain Eyes: as per Subjective / HPI Respiratory: no cough, no chest congestion, no dyspnea and no dyspnea on exertion Cardiovascular: no chest pain, no orthopnea, no palpitations, no lightheadedness and no edema Gastrointestinal: + abdominal pain, + nausea, + change in bowel habits, + diarrhea/loose stools and + blood in stools; no vomiting and no constipation Genitourinary: + flank pain; no dysuria, no difficulty urinating or no urinary incontinence Musculoskeletal: no back pain, no neck pain, no joint pain, no stiffness and no myalgia Integumentary: no rash Neurologic: no gait abnormality, no unsteadiness, no falls and no generalized weakness Physical Exam Constitutional: cooperative Neck: trachea midline, no thyromegaly Respiratory: normal respiratory effort Auscultation: lungs clear to auscultation bilaterally; no crackles, no rales, no rhonchi and no wheezes Cardiovascular: Rate/Rhythm: regular rate and regular rhythm Heart Sounds: normal S1, normal S2 and + murmur Gastrointestinal (Abdomen): Inspection/Auscultation: abdomen normal to inspection Percussion/Palpation: abdomen soft; abdomen nontender, no guarding, abdomen not rigid and no hepatosplenomegaly Skin: no rashes, warm and dry Genitourinary: + CVA tenderness Results & Data Results & Data ([place]) Vital Signs (Past 12 Hours) Vital Signs Temp Pulse Pulse Resp BP BP Pulse Ox 01/30/21 12:15 76 20 169/102 H 94 01/30/21 10:23 65 20 140/89 98 01/30/21 08:37 36.6 C 90 18 138/86 97 Laboratory Results Laboratory Results WBC 18.28 K/uL (4.8-10.8) H 01/30/21 09:49 RBC 5.27 M/uL (4.7-6.1) 01/30/21 09:49 Hgb 15.9 g/dL (14.0-18.0) 01/30/21 09:49 Hct 47.2 % (42-52) 01/30/21 09:49 MCV 89.6 fL (80-100) 01/30/21 09:49 MCH 30.2 pg (25-34) 01/30/21 09:49 MCHC 33.7 g/dL (32-36) 01/30/21 09:49 RDW Std Deviation 43.7 fL (36.4-46.3) 01/30/21 09:49 RDW Coeff of Erin 13.4 % (11.5-14.5) 01/30/21 09:49 Plt Count 300 K/uL (130-400) 01/30/21 09:49 MPV 8.4 fL (7.4-10.4) 01/30/21 09:49 Immature Gran % (Auto) 0.8 % 01/30/21 09:49 Neut % (Auto) 76.4 % 01/30/21 09:49 Lymph % (Auto) 8.4 % 01/30/21 09:49 [place] % (Auto) 9.2 % 01/30/21 09:49 Eos % (Auto) 4.8 % 01/30/21 09:49 Baso % (Auto) 0.4 % 01/30/21 09:49 Neut # (Auto) 13.94 K/uL (1.4-6.5) H 01/30/21 09:49 Lymph # (Auto) 1.54 K/uL (1.2-3.4) 01/30/21 09:49 [place] # (Auto) 1.69 K/uL (0.11-0.59) H 01/30/21 09:49 Eos # (Auto) 0.88 K/uL (0-0.5) H 01/30/21 09:49 Baso # (Auto) 0.08 K/uL (0-0.2) 01/30/21 09:49 Immature Gran # (Auto) 0.15 K/uL (0.00-0.02) H 01/30/21 09:49 Sodium 136 mmol/L (136-145) 01/30/21 09:49 Potassium 3.8 mmol/L (3.5-5.1) 01/30/21 09:49 Chloride 103 mmol/L (98-107) 01/30/21 09:49 Carbon Dioxide 28 mmol/L (21-32) 01/30/21 09:49 Anion Gap 5.0 (3-11) 01/30/21 09:49 BUN 12 mg/dl (7-18) 01/30/21 09:49 Creatinine 1.43 mg/dl (0.6-1.4) H 01/30/21 09:49 Est Cr Clr Drug Dosing 48.1 ml/min 01/30/21 09:49 Est GFR ( Amer) 59.1 ml/min 01/30/21 09:49 Est GFR (Non-Af Amer) 51.0 ml/min 01/30/21 09:49 BUN/Creatinine Ratio 8.0 (10-20) L 01/30/21 09:49 Glucose 94 mg/dl (70-99) 01/30/21 09:49 Calcium 9.5 mg/dl (8.5-10.1) 01/30/21 09:49 Total Bilirubin 0.4 mg/dl (0.2-1) 01/30/21 09:49 AST 15 U/L (15-37) 01/30/21 09:49 ALT 22 U/L (12-78) 01/30/21 09:49 Alkaline Phosphatase 76 U/L (45-117) 01/30/21 09:49 Total Protein 8.1 gm/dl (6.4-8.2) 01/30/21 09:49 Albumin 3.2 gm/dl (3.4-5.0) L 01/30/21 09:49 Globulin 4.9 gm/dl (2.5-4.0) H 01/30/21 09:49 Albumin/Globulin Ratio 0.7 (0.9-2) L 01/30/21 09:49 Lipase 305 U/L (73-393) 01/30/21 09:49 Urine Color Red 01/30/21 08:52 Urine Appearance Turbid (Clear) A 01/30/21 08:52 Urine pH 5.5 (4.5-7.5) 01/30/21 08:52 Ur Specific [place] 1.025 (1.000-1.030) 01/30/21 08:52 Urine Protein 3+ (Negative) H 01/30/21 08:52 Urine Glucose (UA) Negative (Negative) 01/30/21 08:52 Urine Ketones 1+ (Negative) H 01/30/21 08:52 Urine Blood 3+ (Negative) H 01/30/21 08:52 Urine Nitrite Negative (Negative) 01/30/21 08:52 Urine Bilirubin 1+ (Negative) H 01/30/21 08:52 Urine Urobilinogen Negative (Negative) 01/30/21 08:52 Ur Leukocyte Esterase Negative (Negative) 01/30/21 08:52 Urine RBC >30 /hpf (0-4) H 01/30/21 08:52 Urine WBC 5-10 /hpf (0-5) H 01/30/21 08:52 Ur Epithelial Cells 5-10 /lpf (0-5) H 01/30/21 08:52 Uric Acid Crystals Present (None Prsent) A 01/30/21 08:52 Urine Bacteria Negative (Negative) 01/30/21 08:52 Urine Mucus Present (None Prsent) A 01/30/21 08:52 COVID-19 Eval Order Covid19 at [facility] 01/30/21 11:55 Impressions Abdomen/Pelvis CT 01/30/21 09:28 CT OF THE ABDOMEN AND PELVIS WITHOUT CONTRAST CLINICAL HISTORY: ACUTE L FLANK PAIN THIS MORNING COMPARISON STUDY: KUB January 24, 2021. TECHNIQUE: Axial images of the abdomen and pelvis were obtained without IV contrast. Images were reviewed in the axial, sagittal, and coronal planes. Automated exposure control was utilized for the study. A dose lowering technique was utilized adhering to the principles of ALARA. FINDINGS: Lung bases are unremarkable. There is a prosthetic mitral valve. Median sternotomy wires are noted. No pneumatosis, free air or portal venous gas is present. There is no biliary ductal dilatation status post cholecystectomy. There is moderate peripancreatic infiltration. No peripancreatic fluid collection is present. Unenhanced images of the spleen and adrenal glands are unremarkable. There are bilateral renal parapelvic cysts. There is mild to moderate left hydronephrosis. Several calculi or calculi fragments within the mid left ureter measure up to 6 mm x 2 mm. A few distal left ureteral calculi measure up to 3 mm. There is a 4 mm right ureteropelvic junction calculus. There is no right hydronephrosis. Bilateral renal calculi measure up to 7 mm. There is no evidence for a bowel obstruction. There is mild wall thickening with apparent minimal pericolonic infiltration of the transverse colon as well as the descending colon. Note is made of apparent asymmetric thickening of the right lateral wall of the rectum shown best on axial image 429 of 481. Prominent rectal lymph nodes that measure up to 8 mm. No acute fracture or suspicious lesion is identified within the visualized skeletal structures. IMPRESSION: 1. Several calculi or calculi fragments within the mid left ureter that measure up to 6 mm x 2 mm. Small distal left ureteral calculi measure up to 3 mm. Mild to moderate left hydronephrosis with perinephric stranding. 2. 4 mm right ureteropelvic junction calculus. No right hydronephrosis. 3. Bilateral nephrolithiasis. 4. Mild peripancreatic infiltration which favors acute pancreatitis. 5. Mild wall thickening with minimal pericolonic infiltration of the transverse colon and the descending colon. This may reflect a nonspecific colitis. 6. Apparent asymmetric thickening of the right lateral wall of the rectum. This is difficult to assess by CT and may be due to underdistention. However, a rect al mass cannot be completely excluded. Prominent perirectal lymph nodes. Nonemergent GI consultation is recommended. ACT 112: Positive. There are findings on this exam that require communication between the performing entity and the patient following Patient Test Result Information Act ([place] Act 112) guidelines. Electronically signed by: Joe Bolton M.D. 01/30/2021 10:50 AM PG Care Time/CCT Total # of Minutes Spent Total Time Spent with Patient: Total time spent is greater than 50% in coordination of care (as documented) at patient's floor/unit and/or counseling patient: Coding Level of Care Code 88728 Initial Inpt Care Lvl 3 Diagnoses Hyperlipidemia LDL goal <70 E78.5 Hypertension I10 CAD (coronary artery disease) I25.10 Renal stones N20.0 C. difficile colitis A04.72
--- NOTE | 2021-01-30 13:35 | Urology Consultation ---
Date of Consultation January 30, 2021 Assessment & Plan (1) Left ureteral calculus: (2) Renal stones: 65 year-old male patient, with multiple comorbidities, admitted with intractable left flank pain secondary to numerous obstructing left ureteral calculi, right UPJ calculus, and C-difficile colitis. -Patient afebrile, non-toxic on exam. -Labs reviewed - wbc 18.28, hemoglobin stable, creatinine elevated above baseline at 1.43. -Imaging reviewed - several calculi/fragments within the mid left ureter, distal left ureteral calculi measure up to 3 mm with associated hydronephrosis, in addition to a 4 mm right UPJ calculus. -Keep NPO. -Strain all urine. -Continue with supportive care, pain control, recommend adding Flomax. Findings reviewed with Dr. Betancourt. Given his intractable left flank pain, ANKUSH, in the context of multiple obstructing left ureteral calculi and right UPJ calc ulus, will proceed with OR for cystoscopy, bilateral retrograde pyelogram, and bilateral stent placement. Risks and benefits of procedure discussed and to be reviewed with patient by Dr. Betancourt. OR notified. Preop chest x-ray and EKG ordered. COVID-19 negative. Will cover with IV Ancef preoperatively. Supervising Physician Co-Signing Physician Notes Agree with the plan above. Patient has bilateral obstructing stones with associated nausea and vomiting. We will proceed forth with cystoscopy, bilateral ureteral stent placement. History of Present Illness Reason for Consultation: obstructing ureteral calculi Requesting Physician: Dr. Shyam Salcido History of Present Illness 65 year-old male patient with past medical history significant for kidney stones, migraines, mitral valve prolapse s/p repair, ID s/p cardiac stenting, on chronic Brilinta, hypertension, hyperlipidemia, and other comorbidities listed below, who presented to the emergency room today for evaluation of severe acute left flank pain that started this AM. Does note over the few weeks, he has had intermittent bilateral flank pain that has varied in severity. Pain is currently present in his left lower abdomen/left flank and associated with hematuria and nausea. Of note, patient had recent dental procedures requiring repetitive antibiotic therapy and unfortunately developed C-diff colitis. Has been following with GI, on Vancomycin. CT was performed which was notable for several obstructing left ureteral calculi, right UPJ calculus, and colitis. He was admitted by medicine for further evaluation/treatment. Urology consulted for obstructing left ureteral calculi. Patient has followed with urology in the past in [place], [place]. Does have long-standing history of stones, requiring surgical intervention. Most recently underwent URS-LL roughly 2 years ago. Chart review: Afebrile WBC 18.28 Hgb 15.9 Creatinine 1.43 (previously 1.21) Urinalysis >30 rbc, 5-10 wbc, 5-10 epi, negative bacteria, negative nitrates, uric acid crystals present, mucus present. Imaging: CT abd/pelvis - IMPRESSION: 1. Several calculi or calculi fragments within the mid left ureter that measure up to 6 mm x 2 mm. Small distal left ureteral calculi measure up to 3 mm. Mild to moderate left hydronephrosis with perinephric stranding. 2. 4 mm right ureteropelvic junction calculus. No right hydronephrosis. 3. Bilateral nephrolithiasis. 4. Mild peripancreatic infiltration which favors acute pancreatitis. 5. Mild wall thickening with minimal pericolonic infiltration of the transverse colon and the descending colon. This may reflect a nonspecific colitis. 6. Apparent asymmetric thickening of the right lateral wall of the rectum. This is difficult to assess by CT and may be due to underdistention. However, a rectal mass cannot be completely excluded. Prominent perirectal lymph nodes. Nonemergent GI consultation is recommended. Patient seen and examined at bedside. He is awake, alert, non-toxic in appearance. Does report continued left lower abdominal/left flank pain. No current right flank pain. Last experienced right flank pain last week. States he generally does not feel well at current time. He denies fevers or chills. Does report on-going nausea, denies vomiting. Has intermittent diarrhea. Denies dysuria but does note intermittent hematuria. Feels his urine output has decreased over the past couple of days. Denies bladder pain or pressure. No stone passage since being in ER. Has tolerated stents in the past. Last drank water this morning. Has not had anything to eat since last evening. Denies additional urologic concerns today. Allergies Allergy/AdvReac Type Severity Reaction Status Date / Time No Known Drug Allergies Allergy Verified 01/24/21 11:32 Home Medications Medication Instructions Recorded Confirmed Type aspirin 81 mg tablet,delayed 81 mg PO QAM 30 Days #30 tab 04/23/19 01/30/21 Rx release (Ecotrin Low Strength) niacin 500 mg tablet 500 mg PO QAM 02/15/20 01/30/21 History omega-3 fatty acids 1,000 mg PO BID 02/15/20 01/30/21 History saw palmetto 500 mg capsule 500 mg PO BID 02/15/20 01/30/21 History pravastatin 20 mg tablet 20 mg PO PM #90 tab 05/15/20 01/30/21 Rx lisinopril 10 mg tablet 10 mg PO QAM #90 tab 08/16/20 01/30/21 Rx ezetimibe 10 mg tablet 10 mg PO PM #90 tab 09/13/20 01/30/21 Rx ticagrelor 90 mg tablet (Brilinta) 90 mg PO BID #180 tab 10/09/20 01/30/21 Rx vancomycin 125 mg capsule 125 mg PO QID 10 Days #40 cap 01/29/21 01/30/21 Rx Patient History Medical History Adenomatous polyps Hearing deficit History of kidney stones History of migraine Mitral valve prolapse Myocardial Infarction 2018 - [place] - had heart cath with one stent @ [facility] follows with On anticoagulant therapy brillinta bid for CABG/stents ST elevation [place] (STEMI) Surgical History H/O right heart catheterization 2011 -- heart cath - [facility] --> CABG x 2 04/2019--heart cath @ [facility] with 1 stent placed by History of cholecystectomy History of colonoscopy History of cystoscopy W/ STONE EXTRACTION History of heart artery stent 2018 [place] - heart cath with stent 04/2019 - complains of angina and sob and decision to continue with heart cath and had drug eluting stent @ [facility]. pt has been instructed that he has to take dual antiplatelet therapy with no interruptions. - pt was scheduled for colonoscopy for 08-10-2019. [address]. Patel aware of not stopping thinners and Pt okay to proceed. Pt was cancelled on 08-10-[address] Rodriguez and Dr. Patel discussed case. History of lithotripsy History of mitral valve repair 2011 at same times as CABG Hx of CABG 2011 - 2 VESSELS Family History Mother Post-operative nausea and vomiting Slow to wake up after anesthesia Sister Post-operative nausea and vomiting Slow to wake up after anesthesia Other Cancer Denies family history of Crohn's disease Colorectal cancer Ulcerative colitis Colonic polyp Social History Smoking Status: Former smoker Second Hand Exposure: Yes (father smoked/ smoked); Hx Alcohol Use: No Hx Substance Use: No Preferred Language: [place] Islander Communication Ability: Effective Supervisor Fur Dressing Required: No Beliefs That Will Affect Care: None marital status: Current Living Situation: Family Current Living Situation Comment: Lives with , son and daugther current occupation: Retired Other Information That Helps Us Care for You: No Feels Safe at Home: Yes Safety Concerns: Feels Safe At This Time Assistive Devices: Glasses Review of Systems Constitutional: as per Subjective / HPI; no fever and no chills Eyes: no problem reported Respiratory: + dyspnea (chronic for patient); no cough Cardiovascular: no chest pain and no edema Gastrointestinal: as per Subjective / HPI Genitourinary: + as per Subjective / HPI Musculoskeletal: as per Subjective / HPI Neurologic: no dizziness Endocrine: no fatigue Hematologic / Lymphatic: as per Subjective / HPI Physical Exam Constitutional: well developed, well nourished and cooperative; no acute distress and not ill appearing ENMT: Ears: no external ear abnormality Nose: no external nose abnormality Neck: normal visual inspection and trachea midline Respiratory: normal respiratory effort and able to speak in complete sentences; no respiratory distress and no audible wheezes Cardiovascular: Extremities: no calf tenderness and no edema Gastrointestinal (Abdomen): Inspection/Auscultation: abdomen normal to inspection; abdomen not distended Percussion/Palpation: + abdomen tender (diffuse tenderness to abdomen) and abdomen soft; no guarding Musculoskeletal: Moves all extremities without difficulty. Skin: No visible rashes, lesions, or wounds noted. Neurologic: moves all extremities and awake Psychiatric: Orientation: alert, oriented x 3 and cooperative Affect: euthymic affect Genitourinary: + CVA tenderness (left) Results & Data ([facility]) Vital Signs (Past 12 Hours) Vital Signs Temp Pulse Pulse Resp BP BP Pulse Ox 01/30/21 12:15 76 20 169/102 H 94 01/30/21 10:23 65 20 140/89 98 01/30/21 08:37 36.6 C 90 18 138/86 97 PG Care Time/CCT Total # of Minutes Spent Total Time Spent with Patient: Total time spent is greater than 50% in coordination of care (as documented) at patient's floor/unit and/or counseling patient: Coding Level of Care Code 58928 Office/OBS Consult Lvl 4 Diagnoses Left ureteral calculus N20.1 Renal stones N20.0
[2021-01-30] MEDS ORDERED: HYDROmorphone INJ 0.5 MG/0.5 ML SYR ONE (13:48)
[2021-01-30] MEDS ORDERED: ceFAZolin 2000MG 2,000 MG/15 ML SYR IV SCH (14:13)
[2021-01-30] MEDS ORDERED: HYDROmorphone INJ 0.5 MG/0.5 ML SYR IV PRN (14:28)
[2021-01-30] MEDS ORDERED: ACETAMINOPHEN 325 MG TAB PO PRN (14:28)
[2021-01-30] MEDS ORDERED: ONDANSETRON INJ 2 MG/ML 2 ML VIAL IV PRN ×2 (14:28→17:20)
[2021-01-30] MEDS ORDERED: DIATRIZOATE MEGLUMINE 30% 100ML VIAL INSTIL ONE (14:56)
[2021-01-30] MEDS: HEPARIN SOD 5,000 UNIT/0.5 ML VIAL SQ SCH ×2 (15:10→21:21)
[2021-01-30] MEDS ORDERED: fentaNYL citrate 100 MCG/2 ML VIAL ONE (15:17)
[2021-01-30] MEDS ORDERED: PROPOFOL IV EMULSION 10 MG/ML 20 ML VIAL IV ONE (15:17)
[2021-01-30] MEDS ORDERED: LIDOCAINE 2% 2 ML VIAL/AMP(20MG/ML) INFIL ONE (15:17)
[2021-01-30] MEDS ORDERED: MIDAZOLAM HCL 1 MG/ML 2ML VIAL ONE (15:17)
--- NOTE | 2021-01-30 15:22 | XRay Report ---
XR chest 2V PA/lateral CLINICAL HISTORY: Preoperative evaluation. COMPARISON STUDY: Chest radiograph May 13, 2018. FINDINGS: There is no pneumothorax or pleural effusion. Note is made of mild cardiomegaly without zackary dence for pulmonary edema. There are median sternotomy wires and prosthetic mitral valve. IMPRESSION: No acute cardiopulmonary findings. Mild cardiomegaly. ACT 112: Negative or not required by law. Electronically signed by: Joe Bolton M.D. 01/30/2021 3:20 PM
--- NOTE | 2021-01-30 15:30 | Anesthesiology Consultation ---
Date of Service January 30, 2021 Assessment & Plan ASA ASA3 Proposed Anesthesia Anesthesia Type: General Risk / Benefits Reviewed With: PT / POA / Parent / Guardian, Accepts Plan and Informed Consent Obtained History Surgery Operation Date: 01/30/21 13:35 Proposed Procedures p Cystoscopy, Bilateral Retrograde Pyelogram, Bilateral Ureteral Stent Insertion - Robbin Betancourt MD Height/Weight Height: 5 ft 7 in Weight: 76.2 kg Allergies Allergy/AdvReac Type Severity Reaction Status Date / Time No Known Drug Allergies Allergy Verified 01/24/21 11:32 Medications Home Medications Medication Instructions Recorded Confirmed Last Taken aspirin 81 mg tablet,delayed 81 mg PO QAM 30 Days #30 tab 04/23/19 01/30/2101/31 06:30 release (Ecotrin Low Strength) niacin 500 mg tablet 500 mg PO QAM 02/15/20 01/30/21 02/19/20 08:00 omega-3 fatty acids 1,000 mg PO BID 02/15/20 01/30/21 02/19/20 21:00 saw palmetto 500 mg capsule 500 mg PO BID 02/15/20 01/30/21 02/19/20 08:00 pravastatin 20 mg tablet 20 mg PO PM #90 tab 05/15/20 01/30/21 Unknown lisinopril 10 mg tablet 10 mg PO QAM #90 tab 08/16/20 01/30/21 Unknown ezetimibe 10 mg tablet 10 mg PO PM #90 tab 09/13/20 01/30/21 Unknown ticagrelor 90 mg tablet (Brilinta) 90 mg PO BID #180 tab 10/09/20 01/30/21 Unknown vancomycin 125 mg capsule 125 mg PO QID 10 Days #40 cap 01/29/21 01/30/21 Unknown Active Medications Generic Name Dose Route Start Last Admin Trade Name Freq PRN Reason Stop Dose Admin Heparin Sodium (Porcine) 5,000 units 01/30/21 14:28 01/30/21 15:10 Heparin Sod 5,000 Unit/0.5 Ml Vial SQ 03/01/21 14:27 Not Given Q8 CHELY NPO Date Last Intake of Fluids: 01/30/21 Time Last Intake of Fluids: 07:00 Date Last Intake of Solids: 01/29/21 Time Last Intake of Solids: 20:00 Past Medical History Medical History Adenomatous polyps Hearing deficit History of kidney stones History of migraine Mitral valve prolapse Myocardial Infarction 2018 - [place] - had heart cath with one stent @ [facility] follows with On anticoagulant therapy brillinta bid for CABG/stents ST elevation [place] (STEMI) Exercise / Class Metabolic Activity II 4-5 Yardwork/Stairs/Walk up hill Past Family History Family History Mother Post-operative nausea and vomiting Slow to wake up after anesthesia Sister Post-operative nausea and vomiting Slow to wake up after anesthesia Other Cancer Denies family history of Crohn's disease Colorectal cancer Ulcerative colitis Colonic polyp Past Surgical History Surgical History H/O right heart catheterization 2011 -- heart cath - [facility] --> CABG x 2 04/2019--heart cath @ [facility] with 1 stent placed by History of cholecystectomy History of colonoscopy History of cystoscopy W/ STONE EXTRACTION History of heart artery stent 2017 [place] - heart cath with stent 04/2019 - complains of angina and sob and decision to continue with heart cath and had drug eluting stent @ [facility]. pt has been instructed that he has to take dual antiplatelet therapy with no interruptions. - pt was scheduled for colonoscopy for 08-10-2019. [address]. Patel aware of not stopping thinners and Pt okay to proceed. Pt was cancelled on 08-10-[address] Rodriguez and Dr. Patel discussed case. History of lithotripsy History of mitral valve repair 2011 at same times as CABG Hx of CABG 2012 - 2 [facility]ESSELS Past Anesthesia History No Hx of Anesthesia Complications and No Family Hx of Anesthesia Complications History of PONV No Hx of PONV and No Hx of Motion Sickness Social History Smoking Status: Former smoker tobacco type: cigarettes Hx Alcohol Use: No Hx Substance Use: No substance use type: does not use Review of Systems denies fever/cough/ colds/ chest pain/ SOB/ TASNEEM denies TASNEEM Physical Exam Vital Signs Last Vital Signs Temp 36.6 C 01/30/21 15:24 Pulse 85 01/30/21 15:24 Resp 18 01/30/21 15:24 BP 141/85 H 01/30/21 15:24 Pulse Ox 99 01/30/21 15:24 ENMT Mouth: no TMJ abnormality and no dentition abnormality Thyromental Distance: > or= 3.5 Finger Breadths Mallampati Class: II Neck neck extension not limited Respiratory normal respiratory effort; no respiratory distress Auscultation: lungs clear to auscultation bilaterally Cardiovascular Rate/Rhythm: regular rate and regular rhythm Neurologic moves all extremities Psychiatric Orientation: alert and oriented x 3 Testing Laboratory Results 01/30/21 09:49 01/30/21 09:49 Urine Color Red 01/30/21 08:52 Urine Appearance Turbid (Clear) A 01/30/21 08:52 Urine pH 5.5 (4.5-7.5) 01/30/21 08:52 Ur Specific [place] 1.025 (1.000-1.030) 01/30/21 08:52 Urine Protein 3+ (Negative) H 01/30/21 08:52 Urine Glucose (UA) Negative (Negative) 01/30/21 08:52 Urine Ketones 1+ (Negative) H 01/30/21 08:52 Urine Nitrite Negative (Negative) 01/30/21 08:52 Ur Leukocyte Esterase Negative (Negative) 01/30/21 08:52 Urine RBC >30 /hpf (0-4) H 01/30/21 08:52 Urine WBC 5-10 /hpf (0-5) H 01/30/21 08:52 Ur Epithelial Cells 5-10 /lpf (0-5) H 01/30/21 08:52
--- NOTE | 2021-01-30 16:24 | Post Operative Brief Note ---
PG Immediate Post Op with CF Date of Surgery January 30, 2021 Pre & Post Diagnosis Operation Date: 01/30/21 13:35 Pre-Op Diagnosis: Bilateral nephrolithiasis Post-Op Diagnosis: Bilateral nephrolithiasis I identified the patient and participated in the time-out.: Yes Procedure Operation Date: 01/30/21 13:35 Actual Procedures p Cystoscopy, Bilateral Retrograde Pyelogram, Bilateral Ureteral Stent Insertion(Bilateral) - Robbin Betancourt MD Surgeon Robbin Betancourt MD Foreman Or Supervisor And Operator None Estimated Blood Loss 0 Findings Consistent with Post-Op Diagnosis 1. Small amount of stone debris out of right UO. No concerns for infection. 2. Bilateral RGPs showed moderate hydro on L and mild on R 3. Bilateral stents in good position Specimens Specimen Description: No specimens, per surgeon Drains Other (Bilateral 6x26 stents ) Disposition Accompanied Patient To Recovery: No Overlapping Procedure I was present for: the critical portions of procedure.
--- NOTE | 2021-01-30 17:04 | Operative Report ---
PG Post Operative Report Pre & Post Diagnosis Operation Date: 01/30/21 13:35 Pre-Op Diagnosis: Bilateral nephrolithiasis Post-Op Diagnosis: Bilateral nephrolithiasis I identified the patient and participated in the time-out.: Yes Procedure Operation Date: 01/30/21 13:35 Actual Procedures p Cystoscopy, Bilateral Retrograde Pyelogram with radiographic interpretation, Bilateral Ureteral Stent Insertion(Bilateral) - Robbin Betancourt MD Surgeon Robbin Betancourt MD Final Assembly And Packing Supervisor None Estimated Blood Loss 0 Findings Consistent with Post-Op Diagnosis 1. Normal urethra prostate and bladder. No stones or lesions in the bladder. Some efflux of small stone particles from right ureter. 2. Bilateral ureteral stents with good proximal coils in bilateral renal pelvis ease and good distal coils in bladder. Specimens None Drains Bilateral 6 [place] by 26 cm ureteral stents Anesthesia Type General Complications None Disposition Accompanied Patient To Recovery: No Indications 65-year-old male who came in with left flank pain with nausea and vomiting. CT scan showed bilateral peripelvic cysts along with several mid left ureteral obstructing stones and mild left hydronephrosis on the left. Additionally, there was a 4 mm right UPJ stone that appeared nonobstructing. Initial white blood cell count was 18 but down trended. Creatinine was elevated above baseline at 1.43. Urinalysis revealed 1+ leukocyte esterase 5-10 WBCs, greater than 30 RBCs and negative for bacteria. Due to intractable nausea and vomiting, obstructing left ureteral stone and likely impending right ureteral obstruction, risks and benefits were discussed and the patient consented to bilateral ureteral stent placement. Description of Procedure After informed consent was obtained, the patient was transferred to the operative suite. General anesthesia was induced. He is placed in dorsal lithotomy and prepped and draped in a sterile fashion. He received preoperative antibiotics in the form of 2 g of Ancef. An appropriate surgical timeout was performed. 21 [place] Island[place] rigid scope was inserted per urethra and the bladder with the above- noted findings. Attention was turned to left ureteral orifice and intubated this with a 5 [place] open-ended catheter. A left retrograde pyelogram was performed which showed moderate left hydronephrosis. A sensor wire was advanced in the upper pole of the kidney and the 5 [place] open-ended catheter was removed. A 6 [place] by 26 cm left ureteral stent was deployed with a good proximal coil in the left renal pelvis and good distal coil noted in the bladder. We turned our attention the right ureteral orifice. It was intubated with a 5 [place] open-ended catheter and a right retrograde pyelogram was shot which showed mild pelviectasis. A sensor wire was advanced to the upper pole of the kidney and the 5 [place] open-ended catheter was removed. A 6 [place] by 26 cm right ureteral stent was deployed with a good proximal coil in the right renal pelvis and good distal coil noted in the bladder. The bladder was emptied and the scope was removed. This concluded the end of the case. All counts correct at the end of the case. I was present scrubbed actively participated for the entire the procedure. I attest to the content of the Intraoperative Record and any orders documented therein. Any exceptions are noted below.
[2021-01-30] MEDS ORDERED: HYDROmorphone INJ 2 MG/ML SYR/VIAL IV PRN (17:20)
[2021-01-30] MEDS ORDERED: ePHEDrine sulfate 50 MG/ML AMP IV PRN (17:20)
[2021-01-30] MEDS ORDERED: ATROPINE SULFATE 0.1 MG/ML 10ML SYR IV PRN (17:20)
[2021-01-30] MEDS ORDERED: fentaNYL citrate 100 MCG/2 ML VIAL IV PRN (17:20)
[2021-01-30] MEDS: RASPBERRY SYRUP 5 ML UDP PO SCH ×2 (17:54→21:21)
[2021-01-30] MEDS: VANCOMYCIN HCL 125 MG/2.5ML SOLN PO SCH ×2 (17:54→21:21)
[2021-01-30] MEDS: TAMSULOSIN HCL 0.4 MG CAP PO SCH (17:54)
[2021-01-30] MEDS ORDERED: PRAVASTATIN SOD 20 MG TAB PO SCH (21:00)
[2021-01-30] MEDS ORDERED: NON-FORMULARY MEDICATION (Saw Palmetto 500 mg Capsule) PO SCH (21:00)
[2021-01-30] MEDS ORDERED: EZETIMIBE 10 MG TABLET PO SCH (21:00)
[2021-01-30] MEDS: TICAGRELOR 90 MG TAB PO SCH (21:12)
[2021-01-30] MEDS: OMEGA-3 (PURIFIED FISH OIL) 1 GM CAP PO SCH (21:12)
[2021-01-31] MEDS: SODIUM CHLORIDE 0.9% 1000ML 1,000 ML IV SCH (02:30)
[2021-01-31] MEDS: HEPARIN SOD 5,000 UNIT/0.5 ML VIAL SQ SCH (06:08)
--- NOTE | 2021-01-31 06:11 | Electrocardiogram Report ---
Test Reason : Blood Pressure : / mmHG Vent. Rate : 088 BPM Atrial Rate : 088 BPM P-R Int : 176 ms QRS Dur : 090 ms QT Int : 344 ms P-R-T Axes : 072 -19 008 degrees QTc Int : 416 ms Normal sinus rhythm Inferior infarct (cited on or before 13-MAY-2018) Nonspecific T wave abnormality Abnormal ECG When compared with ECG of 22-APR-2019 16:12, DC interval has decreased Non-specific change in ST segment in Inferior leads Nonspecific T wave abnormality has replaced inverted T waves in Inferior leads Confirmed by Hoang Steele ([id number]) on 01/31/2021 6:11:16 AM Referred By: REFERRED SELF Confirmed By:Hoang Steele
[2021-01-31 06:34] LABS: Basophils # (auto) 0.02 K/uL (0-0.2); Basophils % (auto) 0.1 %; Eosinophils # (auto) 0.07 K/uL (0-0.5); Eosinophils % (auto) 0.5 %; Hematocrit (blood only) 45.7 % (42-52); Hemoglobin 15.4 g/dL (14.0-18.0); Immature Granulocytes % (auto) 0.7 %; Lymphocytes # (auto) 1.23 K/uL (1.2-3.4); Lymphocytes % (auto) 8.2 %; Mean Corpuscular Hemoglobin 30.3 pg (25-34); Mean Corpuscular Hgb Conc 33.7 g/dL (32-36); Mean Corpuscular Volume 89.8 fL (80-100); Mean Platelet Volume 8.4 fL (7.4-10.4); Monocytes # (auto) 1.81 K/uL (0.11-0.59); Neutrophils # (auto) 11.82 K/uL (1.4-6.5); Neutrophils % (auto) 78.5 %; Platelet Count 295 K/uL (130-400); RDW Coefficient of Variation 13.4 % (11.5-14.5); RDW Standard Deviation 43.7 fL (36.4-46.3); Red Blood Count 5.09 M/uL (4.7-6.1); White Blood Count 15.05 K/uL (4.8-10.8)
[2021-01-31 07:12] LABS: BUN Creatinine Ratio 7.1 (10-20); Calcium 8.4 mg/dl (8.5-10.1); Creatinine Clr Calc Pharmacy 53.8 ml/min; Est GFR (African American) 67.6 ml/min; Est GFR (Non-African American) 58.3 ml/min; Potassium 4.1 mmol/L (3.5-5.1)
--- NOTE | 2021-01-31 08:10 | Urology Progress Note ---
Date of Service January 31, 2021 Assessment & Plan (1) Left ureteral calculus: (2) Renal stones: Plan: 65 year-old male patient, with multiple comorbidities, admitted with intractable left flank pain secondary to numerous obstructing left ureteral calculi, right UPJ calculus, and C-difficile colitis. -POD#1 cystoscopy, bilateral retrograde pyelogram, bilateral ureteral stent insertion with Dr. Betancourt. -Clinically progressing as expected. -Patient remains afebrile. -Labs reviewed - wbc improved to 15.05 (previously 18.28), hemoglobin stable, creatinine returned to normal at 1.28. -No additional acute intervention indicated at this time. -Okay to discharge home from perspective. -Recommend home with pain control, PRN Pyridium, Flomax. -Urine culture pending, recommend treating only if indicated given current C- diff infection. -Will arrange outpatient follow-up with urology service for definitive stone management. -Expected clinical course reviewed with patient, all questions answered. Thank you for allowing us to participate in the acute care of Mr. Huerta. Please reconsult us with additional questions, concerns or changes in patient status. Admission and Anticipated Discharge Date Admission Date: January 30, 2021 Supervising Physician Co-Signing Physician Notes Discussed patient with MIRANDA and reviewed labs, vitals and all pertinent data. Post op day 1 from bilateral ureteral stent placement. Pain and nausea improved. WBC and Creatinine improving. Stable for discharge home from urologic perspective. Will not send home on any prophylactic antibiotics due to current C diff infection. Will only treat if urine culture returns positive. Will schedule f/u in urology office for definitive stone treatment. Subjective POD#1 cystoscopy, bilateral retrograde pyelogram, bilateral ureteral stent insertion with Dr. Betancourt. Patient feeling well this AM, reports he feels "great". Currently denies flank or abdominal pain. Reports hematuria that has been improving. Denies dysuria, frequency, or urgency. Feels he empties his bladder well. Does note intermittent diarrhea, currently on oral Vancomycin for C-Diff colitis. Denies fevers or chills. Denies nausea or vomiting. Has been ambulating without dizziness/lightheadedness. Chart review: Afebrile Wbc 15.05 (previously 18.28) Hgb 15.4 Creatinine 1.28 (previously 1.43) Urine culture pending. Denies additional urologic concerns today. Review of Systems Constitutional: as per Subjective / HPI; no fever and no chills Gastrointestinal: as per Subjective / HPI; no nausea and no vomiting Genitourinary: + as per Subjective / HPI Physical Exam Constitutional: well developed and well nourished; no acute distress and not ill appearing Respiratory: normal respiratory effort and able to speak in complete sentences; no respiratory distress and no audible wheezes Gastrointestinal (Abdomen): Inspection/Auscultation: abdomen normal to inspection; abdomen not distended Percussion/Palpation: abdomen soft; abdomen nontender and no guarding Psychiatric: Orientation: alert, oriented x 3 and cooperative Affect: euthymic affect Genitourinary: no CVA tenderness Results & Data ([facility]) Vital Signs (Past 12 Hours) Vital Signs Temp Pulse Pulse Resp BP BP Pulse Ox 01/31/21 07:25 36.8 C 80 16 134/85 95 01/31/21 02:15 37.0 C 88 16 126/77 94 01/30/21 22:46 36.8 C 88 18 125/80 94 01/30/21 21:16 36.9 C 93 H 18 132/78 97 01/30/21 20:10 37.0 C 91 H 18 133/86 93 PG Care Time/CCT Total # of Minutes Spent Total Time Spent with Patient: Total time spent is greater than 50% in coordination of care (as documented) at patient's floor/unit and/or counseling patient: Coding Level of Care Code 41293 Subseq Hosp Care Lvl 2 Diagnoses Left ureteral calculus N20.1 Renal stones N20.0
[2021-01-31] MEDS ORDERED: ASPIRIN 81 MG ECTAB PO SCH (09:00)
[2021-01-31] MEDS ORDERED: NIACIN 500 MG TAB PO SCH (09:00)
[2021-01-31] MEDS ORDERED: lisinopril 10 MG TAB PO SCH (09:00)
[2021-01-31] MEDS: VANCOMYCIN HCL 125 MG/2.5ML SOLN PO SCH ×2 (09:59→12:21)
[2021-01-31] MEDS: RASPBERRY SYRUP 5 ML UDP PO SCH ×2 (09:59→12:21)
[2021-01-31] MEDS: OMEGA-3 (PURIFIED FISH OIL) 1 GM CAP PO SCH (10:01)
[2021-01-31] MEDS: TICAGRELOR 90 MG TAB PO SCH (10:01)
[2021-01-31] MEDS: TAMSULOSIN HCL 0.4 MG CAP PO SCH (10:01)
[2021-01-31 10:19] VITALS: BP 110/70; PULSE 100; TEMP 97.9; O2SAT 94
--- NOTE | 2021-01-31 17:23 | Discharge Summary ---
Date of Service January 31, 2021 Admission HPI Per Admitting Provider This is a 65-year-old male with past medical history of CAD, hypertension, hyperlipidemia, and recent diagnosis of C. difficile that presents today complaining of back and left leg pain. Patient is a good historian. Patient tells me he initially had issues with pain when he was given a dose of amoxicillin for some dental work. He had developed some colicky abdominal pain along with diarrhea. He was subsequently diagnosed with C. difficile and had been given Flagyl initially by his PCP. He did not tolerate this medication well and feels that it worsened his abdominal pain. He was subsequently switched ove r to oral vancomycin which did much better with. 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 However, over the past first patient has had significantly worsening pain, mostly in the left side of his back. He presented to the emergency room as he had previously had a renal stones and felt this may be consistent. In the ER, he did have a CT scan of the abdomen pelvis where he was in fact found to have multiple small stones in the mid left ureter, the largest is 6 mm x 2 mm with accompanying mild to moderate hydronephrosis. Patient is now being mated for further definitive treatment of his renal stones. Principal Diagnosis Bilateral kidney stones Discharge Exam Constitutional WD/WN, vitals as above Eyes EOM intact bilaterally; no conjunctival abnormality ENMT external ear and nose normal, oropharynx normal Neck trachea midline, no thyromegaly normal visual inspection Respiratory normal respiratory effort, lungs clear to auscultation no respiratory distress Cardiovascular RRR, no murmur, no edema Gastrointestinal (Abdomen) Inspection/Auscultation: abdomen normal to inspection; abdomen not distended Musculoskeletal no cyanosis or clubbing, extremities motor strength 5/5 Skin no rashes, warm and dry Neurologic moves all extremities and awake Psychiatric Orientation: alert, oriented to person and cooperative Discharge Data Allergies Allergy/AdvReac Type Severity Reaction Status Date / Time No Known Drug Allergies Allergy Verified 01/24/21 11:32 Consultations 01/30/21 12:15 ED Decision to Admit Stat 01/30/21 14:28 Consult Urology Routine Procedures Performed Operation Date: 01/30/21 13:35 Actual Procedures p Cystoscopy, Bilateral Retrograde Pyelogram, Bilateral Ureteral Stent Insertion(Bilateral) - Robbin Betancourt MD Ordered Studies 01/30/21 09:28 CT abd pelvis wo con Stat Hospital Course (1) Renal stones: S/p bilateral stenting with urology. - Pain essentially resolved. - D/c per urology with pain medication PRN. Given 2 weeks of Flomax. Will see Urology next week for follow-up. -> Script sent for 3 days of antibiotics. So far, prelim urine culture is negative (<1,000 CFU/mL). If it remains negative, he was told to not start the antibiotics in order to not aggravate his C. diff. (2) C. difficile colitis: - Continue oral vancomycin. Patient does note that he is improving and is tolerating this well. Told to resume his home dosing on discharge and continue his capsules until gone. This will provide one more day, but he did have a dose of cefazolin lilliam-operatively. (3) Hyperlipidemia LDL goal <70: - Continue medications as ordered, pravastatin 20 mg, lisinopril 10 mg, Zetia 10mg, Brilinta, aspirin (4) Hypertension: Patient's blood pressure elevated, likely secondary to discomfort. - Continue lisinopril as ordered (5) CAD (coronary artery disease): Total Time Total Time Spent Total Time Spent (In Minutes): 35 Discharge Plan Discharge Items Patient Disposition: Home - Self-Care Reason For Visit: KIDNEY STONE Discharge Diagnosis: Kidney stones on both sides Activity: Resume your previous activity Non-emergency contact: Primary Care Provider and Urologist Call non-emergency contact if: your symptoms worsen and your temperature is above 101 Follow-up/Referrals: Bill Horowitz [Primary Care Provider] - 02/05/21 3:00 pm Robbin Betancourt MD [Physician] - 02/11/21 1:45 pm () Diet: Heart Healthy Addtl Attending Provider Instructions: Mr. Huerta, You were admitted to the hospital with kidney stones on both sides of your body. Dr. Betancourt from Urology put in 2 stents to help the urine flow past the blockages. We are sending you home on some medications to help the stone particles pass more easily as well as some pain medication. We are sending a script for some antibiotics. DO NOT take these unless you get a call from the hospital or the Urology office that your urine culture was positive. Given your C. diff infection, we would like you to HOLD OFF on the antibiotics unless you hear from us. We will monitor your urine culture. If it grows bacteria, we will have you take the antibiotics, but if we can spare you taking them, that would help you recover from the C. diff faster. For your C. diff, as we discussed, resume taking your capsules at home as normal. We will just have you take a slightly longer course since you were in the hospital and got a single dose of antibiotics during your procedure. Pending Studies at Discharge: No Stand-Alone Forms: My [facility], Opioid Pain Management, Smoking Cessation Medications and DC Order Prescriptions: New tamsulosin 0.4 mg Capsule 0.4 mg PO QAM Qty: 14 RF: 0 hydrocodone-acetaminophen 5-325 mg tablet 1 tab PO TID PRN (Reason: pain) Qty: 10 RF: 0 cefdinir 300 mg capsule 300 mg PO BID Qty: 6 RF: 0 Continued pravastatin 20 mg tablet 20 mg PO PM Qty: 90 RF: 3 lisinopril 10 mg tablet 10 mg PO QAM Qty: 90 RF: 3 ezetimibe 10 mg tablet 10 mg PO PM Qty: 90 RF: 3 Brilinta 90 mg tablet 90 mg PO BID Qty: 180 RF: 3 vancomycin 125 mg capsule 125 mg PO QID 10 Days Qty: 40 RF: 0 aspirin [Ecotrin Low Strength] 81 mg Tablet,Delayed Release (Dr/Ec) 81 mg PO QAM 30 Days Qty: 30 RF: 6 saw palmetto 500 mg Capsule 500 mg PO BID RF: 0 omega-3 fatty acids Capsule 1,000 mg PO BID RF: 0 niacin 500 mg Tablet 500 mg PO QAM RF: 0 Discharge Orders: Discharge Order (Routine); Ordered 01/31/21 Ordered By: Maximus Perez/Other Patient Handouts: Understanding Kidney Stones, Clostridium Difficile Infection Admission Data Admit Date/Time: 01/30/21 13:18 Attending Provider: Maximus Piña Admit Provider: Shyam Salcido Primary Care Provider: Bill Horowitz Other Providers: Reese Morel ; Maximus Piña Other Interventions: Discharge Summary Assessment (RN) Last Done: 01/31/21 13:51 Coding Level of Care Code D/C DAY MANAGEMENT >30 MINS Diagnoses Renal stones N20.0 C. difficile colitis A04.72 Hyperlipidemia LDL goal <70 E78.5 Hypertension I10 CAD (coronary artery disease) I25.10
== END 2021-01-31 14:18 | disposition home or self-care (01) ==
LOC: ED 08:31 → INTOOBSV 13:18 → 3N 13:18 → SUATTDRO 13:18 → 3N 14:11
DX: Z79.82 Long term (current) use of aspirin; Z20.822 Contact with and (suspected) exposure to COVID-19; Z95.5 Presence of coronary angioplasty implant and graft; N17.9 Acute kidney failure, unspecified; I25.2 Old myocardial infarction; I10 Essential (primary) hypertension; Z79.899 Other long term (current) drug therapy; D72.829 Elevated white blood cell count, unspecified; I34.1 Nonrheumatic mitral (valve) prolapse; A04.72 Enterocolitis due to Clostridium difficile, not specified as recurrent; E78.5 Hyperlipidemia, unspecified; N13.2 Hydronephrosis with renal and ureteral calculous obstruction; I25.10 Atherosclerotic heart disease of native coronary artery without angina pectoris; Z87.891 Personal history of nicotine dependence